=== PATIENT | female | born 1960 | race Two or more races ===

== ENCOUNTER 2022-02-17 21:12 | Emergency (ER) | payer SELFPAY ==
[~2022-02-17] VITALS: Ht 160 cm; Wt 115.7 kg
--- NOTE | 2022-02-17 21:32 | NUR ---
[id number] C/O GLF AT [facility] S/P TRIPPING OVER CORD. COMPLAINING OF L LEG/L KNEE PAIN. AMBULATORY WITH STEADY GAIT NO GROSS TRAUMA OR DEFORMITIES NOTED TO EXTREMITY. WAS AT [facility] FOR EVAL.
[2022-02-17] MEDS ORDERED: IBUPROFEN 600 MG TABLET PO ONE (22:00)
[2022-02-17] MEDS ORDERED: IBUPROFEN 600 MG TABLET ONE (22:03)
[2022-02-17] MEDS ORDERED: NAPR500T6 PO (22:42)
--- NOTE | 2022-02-17 22:56 | NUR ---
Patient discharged to home in stable condition. Written and verbal after care instructions given. Patient verbalizes understanding of instruction.
[2022-02-17 23:40] VITALS: BP 143/88
== END 2022-02-17 22:56 | disposition home or self-care (01) ==
LOC: ER 21:13
DX: S80.02XA Contusion of left knee, initial encounter (principal); M25.512 Pain in left shoulder; I10 Essential (primary) hypertension; E11.9 Type 2 diabetes mellitus without complications; Z60.2 Problems related to living alone; W18.09XA Striking against other object with subsequent fall, initial encounter; Y93.89 Activity, other specified; Y92.89 Other specified places as the place of occurrence of the external cause; Y99.8 Other external cause status
CPT/HCPCS: 73030-TC; 73564-TC